=== PATIENT | male | born 1985 | race Hispanic/Latino ===

== ENCOUNTER 2021-01-22 03:34 | Emergency (ER) | payer OTHER ==
[2021-01-22 03:43] VITALS: BP 154/99
[2021-01-22 04:12] LABS: Hematocrit 47.6 % (35.5-45.6); Mean Corpuscular HGB Conc 34 % (32-34); Mean Corpuscular Volume 92 fl (84-94); Platelet Count 298 K/mm3 (140-440); Red Cell Distribution Width 13.5 % (13.2-15.2)
[2021-01-22 04:32] LABS: Calcium 10.2 mg/dL (8.4-10.2)
--- NOTE | 2021-01-22 05:17 | Event Note ---
ED Screening Note Date of service: 01/22/21 Time: 04:47 ED Screening Note: 35-year-old male presents to the emergency room for right lower quadrant pain that started a couple hours ago. Patient states the pain is a 10 out of 10. He is nauseated but no vomiting. Patient states nothing makes it better. Movement makes it worse. This initial assessment/diagnostic orders/clinical plan/treatment(s) is/are subject to change based on patients health status, clinical progression and re- assessment by fellow clinical providers in the ED. Further treatment and workup at subsequent clinical providers discretion. Patient/guardian urged not to elope from the ED as their condition may be serious if not clinically assessed and managed. Initial orders include:
[2021-01-22 05:20] LABS: Bilirubin,Urine NEG (Negative); Blood,Urine SM (Negative); Color,Urine Yellow (Yellow); Mucus,Urine 1+ /HPF
[2021-01-22 05:40] LABS: Alanine Aminotransferase 40 units/L (7-56); Albumin 4.7 g/dL (3.9-5); BUN/Creatinine Ratio 14; Blood Urea Nitrogen 18 mg/dL (9-20); Calcium 10.1 mg/dL (8.4-10.2); Hemolysis Index 6
[2021-01-22 07:03] LABS: Platelet Estimate Consistent w Auto; RBC Morphology Normal; Total Cells Counted 100
== END 2021-01-22 06:40 ==
LOC: ED 03:34
DX: R10.31 Right lower quadrant pain (principal); Z53.21 Procedure and treatment not carried out due to patient leaving prior to being seen by health care provider
CPT/HCPCS: 36415; 80048; 80053; 81001; 83690; 85007; 85025; 87086